=== PATIENT | male | born 1975 | race Two or more races ===

== ENCOUNTER 2022-10-25 13:04 | Emergency (ER) | payer OTHER ==
[~2022-10-25] VITALS: Ht 170.2 cm; Wt 86.2 kg
[~2022-10-25 13:04] MED LIST: AMOX1TAB12 PO; BENTYL10 MG/ML IM; CELEBREX200MG; HYFIBER WI12 GM/30 M; IMODIUM A-D2 MG PO; POLYETHYLENE GLY1 GM
== END 2022-10-25 18:13 | disposition home or self-care (01) ==
LOC: ER 13:04
DX: M75.91 Shoulder lesion, unspecified, right shoulder (principal)